=== PATIENT | female | born 1990 | race Caucasian/White ===

== ENCOUNTER 2018-05-14 14:04 | Outpatient (RCR) | payer OTHER ==
[~2018-05-14 14:04] MED LIST: FLAGYL500 MG PO; NO HOME MEDICATIONS; Ritalin PO
== END 2018-07-29 15:44 | disposition home or self-care (01) ==
LOC: WSOH 14:04
DX: Z77.21 Contact with and (suspected) exposure to potentially hazardous body fluids (principal); W46.0XXA Contact with hypodermic needle, initial encounter; Y92.099 Unspecified place in other non-institutional residence as the place of occurrence of the external cause; Y99.0 Civilian activity done for income or pay; G43.909 Migraine, unspecified, not intractable, without status migrainosus; B00.9 Herpesviral infection, unspecified; Z88.2 Allergy status to sulfonamides